=== PATIENT | male | born 1975 | race Two or more races ===

== ENCOUNTER 2023-09-16 18:02 | Emergency (ER) | payer SELFPAY ==
[~2023-09-16] VITALS: Ht 157.5 cm; Wt 68.2 kg
[2023-09-16 18:26] LABS: GLUCOMETER DEV NAME(LOC) ER.6; GLUCOSE,POINT OF CARE 302 MG/DL (70-110)
[2023-09-16] MEDS: LIDOCAINE 1% 10 ML VIAL ID ONE (19:43)
[2023-09-16] MEDS: SODIUM CHLORIDE 0.9% 250 ML IRRIG SOLUTION BOTTLE IRRIG ONE (19:43)
[2023-09-16] MEDS ORDERED: PERTUSS(ACELL),DIPH,TET VAC/PF 0.5 ML SYRINGE IM. ONE (19:45)
[2023-09-16 22:18] VITALS: TEMP 98.5
[2023-09-16] MEDS: BACITRACIN 0.9 GM PACKET OINTMENT TP ONE (22:24)
[2023-09-16 22:31] VITALS: BP 122/63; PULSE 68; RESP 18
== END 2023-09-16 22:38 | disposition home or self-care (01) ==
LOC: EMS 18:02 → EDBD 18:02 → EMS 22:38
DX: S61.411A Laceration without foreign body of right hand, initial encounter (principal); E11.9 Type 2 diabetes mellitus without complications; I10 Essential (primary) hypertension; W26.8XXA Contact with other sharp object(s), not elsewhere classified, initial encounter; Y93.89 Activity, other specified; Y92.89 Other specified places as the place of occurrence of the external cause; Y99.8 Other external cause status
CPT/HCPCS: 99282; 82962; 12001; J3490